=== PATIENT | female | born 2000 | race African-American/Black ===

== ENCOUNTER 2023-12-08 16:40 | Emergency (ER) | payer OTHER ==
[~2023-12-08] VITALS: Ht 175.3 cm; Wt 111.0 kg
[2023-12-08 16:54] VITALS: TEMP 98.8; O2SAT 100
[2023-12-08 17:15] VITALS: BP 136/78; PULSE 98; RESP 18
[2023-12-08] MEDS: IBUPROFEN 600MG TABLET PO ONE (17:15)
[2023-12-08] MEDS ORDERED: OFLO5DRO4 RIGHT EAR (17:19)
[2023-12-08] MEDS ORDERED: NAPR-681 MT (17:20)
== END 2023-12-08 19:16 | disposition home or self-care (01) ==
LOC: ER 16:40
DX: H60.91 Unspecified otitis externa, right ear (principal)
CPT/HCPCS: 81025; 99283